=== PATIENT | female | born 1960 | race Caucasian/White ===

== ENCOUNTER 2016-12-12 07:13 | Inpatient (IN) | payer OTHER ==
[~2016-12-12] VITALS: Ht 167.6 cm; Wt 95.3 kg
--- NOTE | ~2016-12-12 | EKG ---
[address] [place] [address] ELECTROCARDIOGRAM REPORT Name: JANI LOPEZ Room #: 238-P [facility] IN M.R.#: [id number] Admission: 12/12/16 Attend Phys: Shawn Cummings DO Discharge: 12/13/16 Date of : 60 Report #: [id number] THIS REPORT FOR: //name// [facility] ED Test Date: 2016-12-12 Test Time: 07:39:51 Pat Name: JANI LOPEZ Department: Room: 238 Gender: F Diesel Fitter Mechanic: elio : 1960 Requested By: Larisa Stahl Order Number: [id number] MD: Stephen Bain Measurements Intervals Callery Rate: 75 P: 55 WV: 205 QRS: 100 QRSD: 159 T: 32 QT: 428 QTc: 479 Interpretive Statements Sinus rhythm Atrial premature complex Borderline prolonged WV interval RBBB and LPFB No previous ECG available for comparison Electronically Signed On 12-15-2016 12:52:08 CDT by Stephen Bain [email or web address] <ELECTRONICALLY SIGNED> By: Stephen Bain MD 12/15/16 1252 8 8 Stephen Bain MD /[place]
--- NOTE | ~2016-12-12 | EEG ---
[facility] [place] [address] ELECTROENCEPHALOGRAM Name: JANI LOPEZ Room #: 238-P [facility] IN M.R.#: [id number] Admission: 12/12/16 Attend Phys: Shawn Cummings DO Discharge: 12/13/16 Date of : 60 Report #: [id number] THIS REPORT FOR: //name// CC: FAM unknown Shawn Cummings DATE OF SERVICE: 12/12/2016 This patient is being evaluated for post code. EEG was done by placing the electrodes by standard 10-20 system of electrode placement. Both referential and sequential montages were used for recording. This patient's EEG demonstrates a pattern suggestive of burst suppression, but not classical for that. Photic stimulation is unremarkable. IMPRESSION: This patient's study demonstrates a pattern suggestive of burst suppression. It is not classical of that. Burst does consist of what appeared to be epileptiform activity and that should be managed as clinically indicated. Thank you very much for this referral. <ELECTRONICALLY SIGNED> By: Brayan Cottrell MD 12/18/16 0628 1836 12 Brayan Cottrell MD /nt
--- NOTE | ~2016-12-12 | HC ---
[facility] [place] [address] CONSULTATION Name: JANI LOPEZ Room #: 238-P [facility] IN M.R.#: [id number] Admission: 12/12/16 Attend Phys: Shawn Cummings DO Discharge: 12/13/16 Date of : 60 Report #: [id number] THIS REPORT FOR: //name// CC: DENNIS unknown Shawn Cummings PRIMARY CARE PHYSICIAN: Unknown. REFERRAL PHYSICIAN: Dr. Shawn Cummings. REASON FOR REFERRAL: Acute respiratory failure, pulmonary embolus. HISTORY OF PRESENT ILLNESS: The patient is a 56-year-old white female who was brought to the Emergency Room following a witnessed cardiac arrest. A Pulmonary Critical Care consultation was requested. The patient was apparently well last night. Around 6:00 a.m. when she awoke, when she went to the bathroom. When she stood up, she complained to her that she did not feel well. She subsequently proceeded to lose consciousness. The patient then immediately provided CPR; 911 was called. EMS arrived at the scene. EMS states that the patient's down time was approximately 45 and 50 minutes. When they arrived, the patient was without a pulse. On the monitor, patient was noted to be in PEA/asystole. She was given 6 rounds of epinephrine. The patient never achieved a shockable rhythm. She was brought to the Emergency Room. The patient was probably intubated in the ER. It was noted that following intubation, there were bloody secretions emanating from the ET tube. She then underwent a CT chest angiogram showing bilateral pulmonary embolus, felt to be moderate. CTA was unremarkable. NG was placed, which also showed bright red blood. She was then transferred to the ICU. In the ICU, the patient remains hypotensive requiring vasopressors. She is mottled throughout. PAST MEDICAL HISTORY: Remarkable for gestational diabetes, tonsillectomy. PAST SURGICAL HISTORY: As mentioned above. ALLERGIES: None to medications. HOME MEDICATIONS: Include Cipro, fish oil supplements, nicotine patch 21 mg per hour, Zestril, Levemir, NovoLog insulin. [facility] [address] [place] [address] CONSULTATION Name: OWENMARYJANI SIDNEY Room #: 238-P [facility] IN M.R.#: [id number] Admission: 12/12/16 Attend Phys: Shawn Cummings DO Discharge: 12/13/16 Date of : 60 Report #: [id number] FAMILY HISTORY: Father , cause unknown. Mother alive in good health. SOCIAL HISTORY: She is . She does smoke about a pack a day. She drinks. There is no history of alcohol abuse. She is with children. REVIEW OF SYSTEMS: Deferred as the patient is intubated. According to the family, she has been healthy prior to today. PHYSICAL EXAMINATION: GENERAL: She is obtunded, nonresponsive to deep sternal rub. VITAL SIGNS: Pulse is 110, respiratory rate is 20, blood pressure is 100/50 mmHg, saturation is 95%. HEENT: Normocephalic, atraumatic. Pupils are dilated. She is orally intubated. NECK: Supple without lymphadenopathy or thyromegaly. CHEST: Mild coarse breath sounds, no wheezes. No rales. CARDIOVASCULAR: Heart sounds are distant, but no obvious murmurs or gallop. Pulses are reduced bilaterally. BREASTS: Exam deferred. ABDOMEN: Soft, no organomegaly or masses felt. GENITOURINARY: Deferred. RECTAL: Deferred. EXTREMITIES: Moderate cyanosis involving the lower extremities and the upper extremities. No clubbing noted. No edema. LABORATORY DATA: Portable chest x-ray shows right upper lobe infiltrates, ET tube is approximately 3 cm above the magali. A central line is in appropriate position in the superior vena cava. CT chest shows moderate bilateral pulmonary embolus. No saddle embolus is noted. CT head shows slight diminished distinction between james and white matter. Sodium 139, potassium 4.6, chloride 105, CO2 is 13, BUN is 17, creatinine is 1.5, glucose is 478. Liver function profile is markedly elevated. WBC is 13,200; platelets 94,000. INR is 1.4, PTT is 98 seconds, arterial blood gas initial revealed pH 6.5, pCO2 of 102, pO2 of 167, 100% FIO2. IMPRESSION: 1. Acute hypercapnic hypoxic respiratory failure in this 56-year-old white female with witnessed cardiac arrest. 2. Cardiac arrest due to submassive pulmonary embolus. 3. Probable severe anoxic brain injury with down time approximately 45-50 minutes. 4. Hypotension due to pulmonary embolus. 5. Acute kidney injury with acute tubular necrosis. 6. Hyperkalemia. 7. Severe metabolic acidosis. [address] [address] CONSULTATION Name: JOHNJANI SIDNEY Room #: 238-P [facility] IN M.R.#: [id number] Admission: 12/12/16 Attend Phys: Shawn Cummings DO Discharge: 12/13/16 Date of : 60 Report #: [id number] 8. Diabetes mellitus type 2 with hypoglycemia. 9. Bleeding complications. RECOMMENDATION AND DISCUSSION: Given bleeding complications along with over anticoagulation, heparin will be on hold for now. In the meantime, I would recommend IVC filter. Vasopressors for hypotension. We will prefer not to give FFP given probable submassive pulmonary embolus. If bleeding complication cannot be controlled and is felt to be significant, FFP may have to be given. The patient likely has aspiration involving the right upper lobe. Broad-spectrum antibiotics will be initiated. Nephrology and Neurology has been consulted. The cause for pulmonary embolus is unclear without obvious risk factors. Overall, prognosis is felt to be grim given prolonged cardiac arrest and suspected severe anoxic brain injury. These were discussed in detail with the patient's family including and son. The patient's mother was a former nurse. Thank you for this consultation. <ELECTRONICALLY SIGNED> By: Matti Collier MD 12/13/16 1409 1447 [id number] Matti Collier MD /nt
--- NOTE | ~2016-12-12 | HC ---
[facility] [place] [address] CONSULTATION Name: JANI LOPEZ Room #: 238-P [facility] IN M.R.#: [id number] Admission: 12/12/16 Attend Phys: Shawn Cummings DO Discharge: 12/13/16 Date of : 60 Report #: [id number] THIS REPORT FOR: //name// CC: FAM unknown Shawn Cummings REASON FOR CONSULTATION: I was asked to evaluate concerning a profound shock after cardiac arrest. HISTORY OF PRESENT ILLNESS: The patient is a 56-year-old who had a witnessed cardiac arrest while at home. Apparently, she complained of being shortness of breath. Then, she went to cardiac arrest, found to be in PEA. She was asystolic. EMS gave her 6 doses of epinephrine. She was intubated, had a large amount of bloody secretions from her ET tube. Following presentation to the emergency room, she has been in profound shock. She has been unresponsive and having myoclonic facial grimacing. Remains on 100% FIO2. CT scan of the chest revealed bilateral pulmonary infiltrates along with pulmonary emboli. She was anticoagulated and began bleeding, therefore heparin was stopped and an IVC filter was placed. She is in acute renal failure with profound metabolic acidosis and plans for dialysis have been initiated. She now has a right IJ catheter for dialysis. Predating this, no definite history of cough or sputum production. Her drug screen was positive for methamphetamines and marijuana. She is insulin-dependent diabetic. No other known comorbidity conditions. PAST MEDICAL HISTORY: Otherwise, unremarkable. FAMILY HISTORY: Noncontributory. SOCIAL HISTORY: Unknown. ALLERGIES: No known allergies. MEDICATIONS: After her admission, she was placed on Zosyn and given one dose of Levaquin. PHYSICAL EXAMINATION: VITAL SIGNS: Temperature was 37.9, pulse 111, blood pressure 78/68 with a MAP of 73, CVP of 9 on IV fluids including norepinephrine, propofol at low dose, bicarb drip, insulin drip, she is on FIO2 of 100%, had bloody tracheal secretions as well as bloody OG secretions and oozing from her right IJ catheter. SKIN: Mottled throughout. NEUROLOGIC: She had facial myoclonic jerks. She would not respond to vertebral or painful stimuli. Pupils were 3 mm, unresponsive to light. Corneal reflexes absent. Eyes were deviated upward. Did not have a gag. NECK: Supple. LUNGS: Coarse bilaterally. [address] [address] CONSULTATION Name: JANI LOPEZ SIDNEY Room #: 238-P [facility] IN .R.#: [id number] Admission: 12/12/16 Attend Phys: Shawn Cummings DO Discharge: 12/13/16 Date of : 60 Report #: [id number] HEART: Regular without murmur, tachycardic. ABDOMEN: Soft, obese, and nontender. No hepatosplenomegaly or mass. EXTREMITIES: Otherwise unremarkable. LABORATORY STUDIES: CT scan of the chest is noted. CT of the head was negative. Drug screen positive for marijuana and methamphetamines. Urinalysis positive for protein and glucose. Sodium 140, potassium 5.4, bicarb of 17, creatinine 2.4, AST 456, ALT 187, alk phos 289, glucose 365. ABGs on 100% showed a pO2 of 368, pCO2 of 63, pH 7.0, hemoglobin is 13.6, white count 34,000, 26% segs, 3% bands, 67% lymphs, platelet count 207,000. Lactate was 4.6, troponin 7.5. BNP was 100. INR 2.2. IMPRESSION: A 56-year-old with out of hospital cardiac arrest with bilateral pulmonary emboli. Suspect aspiration pneumonia. Appears to have had intake at some point with methamphetamines. Appears to be ceasing and has no other brain function notable at this time. She has acute renal failure and profound metabolic acidosis. Recommend treating for community acquired aspiration pneumonia. I am unclear about her drug history. Therefore, we will add vancomycin to cover methicillin-resistant Staphylococcus aureus. Neurology is evaluating the patient currently. We will continue full resuscitative measures at this time. <ELECTRONICALLY SIGNED> By: Brayn Larios MD 12/13/16 1115 1653 33 Bryan Larios MD /nt
--- NOTE | ~2016-12-12 | DEA ---
[facility] [place] [address] SUMMARY Name: JANI LOPEZ Room #: 238-P [facility] IN M.R.#: [id number] Admission: 12/12/16 Attend Phys: Shawn Cummings DO Discharge: 12/13/16 Date of : 60 Report #: [id number] THIS REPORT FOR: //name// CC: FAM unknown Shawn Cummings DATE OF : 12/13/2016 at 3:00 a.m. HOSPITAL COURSE: The patient is a 56-year-old female that was admitted when she was found down by her . CPR was initiated. The patient did became pulseless, but a pulse was regained. EMS arrived and continued CPR, was intubated and stabilized in the ER, CAT scan did reveal moderate pulmonary emboli with suspected right ventricular strain/acute pulmonary hypertension. The patient was deemed to be brain and was extubated. Unfortunately, the patient best way on 12/13/2016 at 3:00 in the morning, the body was released to the family and the home. <ELECTRONICALLY SIGNED> By: Shawn Cummings DO 12/22/16 1133 0836 1048 Shawn Cummings DO /nt
--- NOTE | ~2016-12-12 | HC ---
[facility] [place] [address] CONSULTATION Name: JANI LOPEZ Room #: 238-P [facility] IN M.R.#: [id number] Admission: 12/12/16 Attend Phys: Shawn Cummings DO Discharge: 12/13/16 Date of : 60 Report #: [id number] THIS REPORT FOR: //name// CC: FAM unknown Shawn Cummings ICU Critical Care renal consult post arrest. DATE OF ADMISSION: 12/12/2016. DATE OF CONSULTATION: 12/12/2016. HISTORY OF PRESENT ILLNESS: This 56-year-old female suffered cardiac arrest at home and underwent prolonged resuscitative measures. She was reportedly down for approximately 45 minutes. She received multiple rounds of medications including by report epinephrine x 6. She presented to the Emergency Room in extremis with a pH of 6.57, pCO2 102.9. Evaluation in the Emergency Room revealed evidence of pulmonary emboli. The patient was admitted to the Intensive Care Unit in critical condition post-cardiac arrest. The patient has a longstanding history of diabetes mellitus for which she was medicated for several years, but according to her sister she had stopped all insulin about a year ago and has been unmedicated over that period of time. She has been smoking regularly. MEDICATIONS: Reported on admission includes ciprofloxacin, fish oil, nicotine patch, lisinopril 5 mg daily, Levemir 50 units subcu daily, NovoLog 15 units with each meal. The remainder of the past medical history, family history, personal and social history and review of systems are not obtainable at this time. PHYSICAL EXAMINATION: GENERAL: Reveals a critically ill female who is intubated and mechanically ventilated. She is observed to have apparent seizure activity involving the arms and head/face. EXTREMITIES: Mottled and cool. HEENT: The head is normocephalic and atraumatic. LUNGS: Oswald reveal scattered rhonchi and wheezes bilaterally. CARDIOVASCULAR: Reveals a resting tachycardia without gross murmur or rub. ABDOMEN: Obese, soft and nontender without palpable mass or organomegaly. NEUROLOGIC: Reveals the patient to be unresponsive to painful stimuli. She is having presumed seizure-like activity involving the upper extremities and face. LABORATORY STUDIES: Available on initial evaluation include sodium 135, potassium 6.3, chloride 103, CO2 of 20, BUN 18, creatinine 2.3, glucose 551. White blood cell count 34,300, hemoglobin 14.5, hematocrit 46.8, platelet count [address] [address] CONSULTATION Name: JANI LOPEZ SIDNEY Room #: 238-P [facility] IN [facility]#: [id number] Admission: 12/12/16 Attend Phys: Shawn Cummings DO Discharge: 12/13/16 Date of : 60 Report #: [id number] 202,000. Arterial blood gases 6.87, pCO2 of 79, pO2 of 207. Review of chest CT revealed evidence of multiple bilateral pulmonary emboli. ASSESSMENT: 1. Cardiac arrest of prolonged nature with suspected anoxic brain damage. 2. Bilateral pulmonary emboli with acute respiratory failure. 3. Uncontrolled diabetes mellitus. 4. Acute kidney injury with ATN secondary to hypoperfusion. PLAN: The patient survival is doubtful at this time. I do not see any chance of spontaneous renal recovery. Aggressive supportive measures will include institution of CRRT as soon as can be arranged given her multiple active medical problems. A temporary dialysis catheter will be placed and the patient will be placed on continuous renal replacement therapy in the form of SLED. We will follow serial laboratory studies, I and O and daily weights. Please see orders. Critical care time one hour. <ELECTRONICALLY SIGNED> By: Mitch Saxean MD 12/13/16 1303 1046 1135 Mitch Saxena MD /nt
[~2016-12-12 07:13] MED LIST: ACETAMINOPHEN650 M5 PO; CIPRO250 M1 PO; FISH OIL SOFTG1 EACH PO; LEVEMIR SC; LISINOPRIL5 MG PO; NICOTINE TRANSD21 M1 TD; NOVOLOG100 UNIT/1 SC
[2016-12-12 07:33] LABS: HEMATOCRIT 47.3 % (37.0-47.0); MCH 29.3 pg (26.0-34.0); MCHC 29.6 g/dL (28.0-37.0); MCV 99.3 fL (80.0-100.0); RBC 4.77 mil/uL (4.20-5.00); RDW 16.2 % (10.5-14.5); WBC 13.2 thou/uL (4.0-11.0)
[2016-12-12 07:34] LABS: MANUAL DIFF YES
[2016-12-12 07:44] LABS: ABG SAMPLE TYPE ARTERIAL; BE(vivo) -31.1 mmol/L (-2 to +3); HCO3 9.2 mmol/L (22.0-26.0); O2(CT) 18.9 mL/dL (15.0-23.0); O2Hb 93.5 % (92.0-98.0); PO2 167.3 mmHg (80.0-100.0); sO2 94.8 % (92.0-98.0); tCO2 12.4 mmol/L (24.0-30.0)
[2016-12-12 07:45] LABS: PCO2 102.9 mmHg (35.0-45.0)
[2016-12-12 07:46] LABS: STICK SITE R.RADIAL; TIDAL VOLUME 500 ml
[2016-12-12 07:57] LABS: CALCIUM 8.8 mg/dL (8.5-10.1); CREATININE 1.5 mg/dL (0.6-1.3); MAGNESIUM 2.6 mg/dL (1.8-2.4); TROPONIN-I 0.34 ng/mL (<0.04-0.07)
[2016-12-12 08:00] LABS: POTASSIUM 4.6 mmol/L (3.5-5.1)
[2016-12-12 08:16] LABS: ABSOLUTE NEUTROPHILS 3.8 thou/uL (1.4-8.2); METAMYELOCYTES 1 %; MYELOCYTES 1 %; TOTAL CELL COUNT 100
[2016-12-12 08:18] LABS: ANISOCYTOSIS SLIGHT; LARGE PLATELETS OCCASIONAL; PLATELET COUNT 94 thou/uL (150-400); POIKILOCYTOSIS SLIGHT
[2016-12-12 08:53] LABS: ABG SAMPLE TYPE ARTERIAL; BE(vivo) -20.6 mmol/L (-2 to +3); HCO3 14.2 mmol/L (22.0-26.0); O2(CT) 21.2 mL/dL (15.0-23.0); O2Hb 96.5 % (92.0-98.0); PO2 207.8 mmHg (80.0-100.0); sO2 98.4 % (92.0-98.0); tCO2 16.7 mmol/L (24.0-30.0)
[2016-12-12 08:54] LABS: LACTATE 7.94 mmol/L (0.5-2.0); PCO2 79.4 mmHg (35.0-45.0); pH 6.871 (7.360-7.450)
[2016-12-12 08:56] LABS: TIDAL VOLUME 500 ml
[2016-12-12 09:29] LABS: INR 1.4; PROTIME 14.7 Seconds (9.3-11.4)
[2016-12-12 09:32] LABS: APTT 98.9 Seconds (24.5-32.8)
[2016-12-12 10:22] LABS: POC CA IONIZED 4.4 mg/dL (4.5-5.3); POC CREATININE 1.1 mg/dL (0.6-1.3); POC HEMOGLOBIN 15.6 g/dL (12.0-15.0); POC POTASSIUM 4.5 mmol/L (3.5-5.1)
[2016-12-12 11:32] VITALS: BP 98/48
[2016-12-12 11:47] LABS: HEMATOCRIT 46.8 % (37.0-47.0); HEMOGLOBIN 14.5 gm/dL (12.0-15.0); MCH 29.2 pg (26.0-34.0); MCHC 31.1 g/dL (28.0-37.0); RBC 4.98 mil/uL (4.20-5.00); RDW 14.9 % (10.5-14.5)
[2016-12-12 11:51] LABS: WBC 32.5 thou/uL (4.0-11.0)
[2016-12-12 11:52] LABS: ABG SAMPLE TYPE ARTERIAL; BE(vivo) -18.7 mmol/L (-2 to +3); O2(CT) 20.9 mL/dL (15.0-23.0); O2Hb 97.7 % (92.0-98.0); sO2 99.1 % (92.0-98.0); tCO2 17.3 mmol/L (24.0-30.0)
[2016-12-12 11:53] LABS: LACTATE 4.85 mmol/L (0.5-2.0); PCO2 74.6 mmHg (35.0-45.0); STICK SITE L.FEMORAL; TIDAL VOLUME 500 ml; VDS CMV MODE cc; pH 6.922 (7.360-7.450)
[2016-12-12 12:01] LABS: ALBUMIN 2.6 g/dL (3.4-5.0); CALCIUM 7.8 mg/dL (8.5-10.1); CREATININE 2.3 mg/dL (0.6-1.3); MAGNESIUM 2.6 mg/dL (1.8-2.4); PHOSPHORUS 12.7 mg/dL (2.5-4.9); TOTAL BILIRUBIN 0.4 mg/dL (<0.1-1.0); TOTAL PROTEIN 6.3 g/dL (6.4-8.2)
[2016-12-12 12:05] LABS: PROTIME 22.7 Seconds (9.3-11.4)
[2016-12-12 12:06] LABS: POTASSIUM 6.3 mmol/L (3.5-5.1)
[2016-12-12 12:07] LABS: TROPONIN-I 5.44 ng/mL (<0.04-0.07)
[2016-12-12 12:19] LABS: INR 2.2
[2016-12-12 12:38] LABS: APTT > 198.4 Seconds (24.5-32.8)
[2016-12-12 13:14] VITALS: BP 98/48
[2016-12-12 13:18] VITALS: BP 78/68
[2016-12-12 14:57] LABS: HEMATOCRIT 43.5 % (37.0-47.0); HEMOGLOBIN 13.6 gm/dL (12.0-15.0); MCH 28.6 pg (26.0-34.0); MCHC 31.3 g/dL (28.0-37.0); MCV 91.3 fL (80.0-100.0); RBC 4.76 mil/uL (4.20-5.00); RDW 14.7 % (10.5-14.5); WBC 34.3 thou/uL (4.0-11.0)
[2016-12-12 15:08] LABS: ABG SAMPLE TYPE ARTERIAL; BE(vivo) -16.5 mmol/L (-2 to +3); HCO3 15.4 mmol/L (22.0-26.0); O2(CT) 20.9 mL/dL (15.0-23.0); O2Hb 98.7 % (92.0-98.0); PCO2 63.8 mmHg (35.0-45.0); PO2 368.2 mmHg (80.0-100.0); sO2 99.6 % (92.0-98.0); tCO2 17.4 mmol/L (24.0-30.0)
[2016-12-12 15:09] LABS: LACTATE 5.23 mmol/L (0.5-2.0); STICK SITE ART LINE; TIDAL VOLUME 550 ml; pH 7.001 (7.360-7.450)
[2016-12-12 15:10] LABS: VDS CMV MODE cc
[2016-12-12 15:16] LABS: INR 2.2; PROTIME 22.6 Seconds (9.3-11.4)
[2016-12-12 15:21] LABS: ALBUMIN 2.2 g/dL (3.4-5.0); CALCIUM 7.1 mg/dL (8.5-10.1); CREATININE 2.4 mg/dL (0.6-1.3); MAGNESIUM 1.9 mg/dL (1.8-2.4); POTASSIUM 5.4 mmol/L (3.5-5.1); TOTAL BILIRUBIN 0.7 mg/dL (<0.1-1.0); TOTAL PROTEIN 5.8 g/dL (6.4-8.2)
[2016-12-12 15:26] LABS: TROPONIN-I 7.55 ng/mL (<0.04-0.07)
[2016-12-12 16:22] LABS: URINE BILIRUBIN NEGATIVE (Negative); URINE BLOOD 3+ (Negative); URINE COLOR YELLOW; URINE GLUCOSE-RANDOM* 3+ (Negative); URINE KETONES NEGATIVE (Negative); URINE LEUKOCYTES-REFLEX NEGATIVE (Negative); URINE PROTEIN (DIPSTICK) 3+ (Negative); URINE SPECIFIC GRAVITY 1.015 (1.003-1.035); URINE UROBILINOGEN 0.2 E.U./dl (0.2-1.0)
[2016-12-12 16:29] LABS: AMP/METHAMP POSITIVE (Negative); BARBITURATES Negative (Negative); BENZODIAZEPINES Negative (Negative); CASTS None Seen /LPF (None Seen); COCAINE Negative (Negative); METHADONE Negative (Negative); OPIATES Negative (Negative); PCP Negative (Negative); SQUAMOUS 0-3 Few /LPF (0-3); THC POSITIVE (Negative); URINE RBC 3-10 Few /HPF (0-2); URINE WBC-REFLEX 0-5 Rare /HPF (0-5)
[2016-12-12 16:30] LABS: CRYSTALS None Seen /LPF (None Seen)
[2016-12-12 18:08] LABS: HEMATOCRIT 42.2 % (37.0-47.0); HEMOGLOBIN 13.5 gm/dL (12.0-15.0); MCH 28.8 pg (26.0-34.0); MCHC 31.9 g/dL (28.0-37.0); MCV 90.3 fL (80.0-100.0); RBC 4.67 mil/uL (4.20-5.00); RDW 14.7 % (10.5-14.5); WBC 34.1 thou/uL (4.0-11.0)
[2016-12-12 18:20] LABS: CALCIUM 6.9 mg/dL (8.5-10.1); CREATININE 2.7 mg/dL (0.6-1.3)
[2016-12-12 18:24] LABS: INR 1.8; PROTIME 18.9 Seconds (9.3-11.4)
[2016-12-12 18:25] LABS: ALBUMIN 2.2 g/dL (3.4-5.0); MAGNESIUM 1.8 mg/dL (1.8-2.4); PHOSPHORUS 5.6 mg/dL (2.5-4.9); POTASSIUM 4.2 mmol/L (3.5-5.1); TOTAL BILIRUBIN 0.9 mg/dL (<0.1-1.0); TOTAL PROTEIN 5.3 g/dL (6.4-8.2)
[2016-12-12 18:27] LABS: APTT 46.2 Seconds (24.5-32.8)
[2016-12-12 18:41] LABS: ABG SAMPLE TYPE ARTERIAL; BE(vivo) -8.4 mmol/L (-2 to +3); HCO3 20.8 mmol/L (22.0-26.0); O2(CT) 19.9 mL/dL (15.0-23.0); O2Hb 98.8 % (92.0-98.0); PCO2 59.4 mmHg (35.0-45.0); PO2 383.2 mmHg (80.0-100.0); sO2 99.7 % (92.0-98.0); tCO2 22.7 mmol/L (24.0-30.0)
[2016-12-12 18:42] LABS: LACTATE 5.09 mmol/L (0.5-2.0); STICK SITE LINE; TIDAL VOLUME 550 ml; pH 7.163 (7.360-7.450)
[2016-12-12 18:43] LABS: ABG COMMENT A/C MODE
[2016-12-12 23:08] LABS: GLYCOHEMOGLOBIN (HGB A1C) 9.5 % (4.8-5.6)
== END 2016-12-13 02:53 | DRG 208 ==
LOC: ER 07:13 → EROBS 08:06 → ICU 08:06
PROVIDERS: Emergency Medicine; Family Medicine; Internal Medicine Nephrology; Internal Medicine Pulmonary Disease
PROC: 0BH17EZ Insertion of Endotracheal Airway into Trachea, Via Natural or Artificial Opening (ICD-10-PCS; principal; 2016-12-12)
PROC: 5A1935Z Respiratory Ventilation, Less than 24 Consecutive Hours (ICD-10-PCS; principal; 2016-12-12)
DX: I26.99 Other pulmonary embolism without acute cor pulmonale (principal); J96.01 Acute respiratory failure with hypoxia; N17.0 Acute kidney failure with tubular necrosis; J96.02 Acute respiratory failure with hypercapnia; G93.1 Anoxic brain damage, not elsewhere classified; E87.4 Mixed disorder of acid-base balance; I46.9 Cardiac arrest, cause unspecified; E11.65 Type 2 diabetes mellitus with hyperglycemia; E87.5 Hyperkalemia; I95.9 Hypotension, unspecified; E11.649 Type 2 diabetes mellitus with hypoglycemia without coma; I45.10 Unspecified right bundle-branch block; E83.41 Hypermagnesemia; F17.210 Nicotine dependence, cigarettes, uncomplicated; E66.9 Obesity, unspecified; Z68.33 Body mass index [BMI] 33.0-33.9, adult
CPT/HCPCS: 10078; 32110; 82310; 85014